=== PATIENT | female | born 1945 | race Caucasian/White ===

== ENCOUNTER 2016-11-14 15:40 | Emergency (ER) | payer OTHER, MEDICARE ==
[~2016-11-14] VITALS: Ht 165.1 cm; Wt 85.0 kg
[~2016-11-14 15:40] MED LIST: ADLT ASA LOW81 MG PO; ALBUTEIN5 % IN; ALBUTEROL S2.5 MG/.5 IN; ALBUTEROL2.5 MG/31 IN; ALBUTEROL2.5 MG/31 NEB; ALENDRONATE70 MG PO; ALLEGRA180 MG PO; ALPHA LIPOIC100 MG PO; ALPHAGAN P0.1 % IO; ALPHAGAN P0.1 % OU; ARAVA20 MG PO; ASPIRIN LOW81 M1 PO; AUGMENTIN500TAB PO; B-12 TR1000 MCG PO; BABY ASPIRIN81 MG PO; BAYER ASPIRIN325 MG PO; BD INS 0.5ML 31G5/16 SC; BD INSULIN; BD INSULIN SC; BUSPIRONE5 MG PO; BUSPIRONE7.5 MG PO; CALCIUM 600 +600 MG PO; CALCIUM D- PO; CARAFATE PO; CARAFATE1 GM/10 M1 PO; CHERATUSSIN OR; CIPROFLOXACN500 MG PO; CLINDAMYCIN HC150 MG PO; CLINDAMYCIN150 MG PO; CLINDAMYCIN300 M1 PO; COMPAZINE10 M1 PO; CRESTOR5 MG PO; DIABETA2.5 MG PO; DIFLUCAN150 MG PO; DIOVAN HCT320 MG/25 PO; DIOVAN320 MG PO; DURAGESIC25 MCG/PAT TD; ENBREL50 MG/M1 IJ; FA-8800 MCG PO; FERREX 150150 MG PO; FEXOFENADINE180 MG PO; FLEXERIL PO; FLOVENT DISK100 MCG IN; FLOVENT HFA110 MCG IN; FLUARIX QUADRIV1 IN1 IM; FLUARIX QUADRIV1 INJ IM; FLUZONE SPLT1 M1 IM; GABAPENTIN300 MG PO; GLYBURIDE2.5 MG PO; HUMALOG 751000 UNITS SC; HUMALOG KW75 MG/25 K; HUMALOG KW75 MG/25 K SC; HYDROCHLOROT25 MG PO; HYDROXYCHLOR200 M1 PO; KEFLEX500 MG PO; KLOR-CON M2020 MEQ PO; LASIX 40 MG TAB40 MG PO; LEVEMIR SC; LIPITOR80 MG PO; MAXZIDE-2537.5 MG/TA PO; MECLIZINE HCL12.5 MG PO; MECLIZINE HCL25 MG PO; MECLIZINE12.5 M1 PO; MELOXICAM15 MG PO; METFORMIN HCL1000 M1 OR; METFORMIN HCL1000 M1 PO; METFORMIN1000 MG PO; METFORMIN500 M1 PO; METHOTREXATE2.5 MG PO; MULTIVITAMIN PO; NAPROSYN500 MG PO; NOVOLIN N1000 UNITS SC; NOVOLIN R SC; NOVOLO1 SC; NOVOLOG MIX100 U/ML SC; OMEPRAZOLE20 MG OR; PHENERGAN25 MG/TAB PO; POTASSIUM CHLO10 ME4 PO; PREVNAR 13 IM; PRILOSEC20 MG PO; PROAIR HFA IN; PROTONIX40 M2 PO; TENORMIN PO; TENORMIN50 MG PO; TESSALON PER100 MG PO; TGT OMEPRAZ20 MG PO; TORADOL30 MG/VIAL IJ; TORADOL30 MG/VIAL IM; TRAMADOL HCL50 MG PO; TRAZODONE50 MG PO; TUBERSOL5 MG/0.1 M ID; TYLENOL # 31 TA1 PO; TYLENOL # 31 TAB PO; VICTOZA18 MG/3 ML SC; XELJANZ5 MG PO; ZITHROMAX500 MG PO; ZPAK PO; [UNRECOGNIZED DRUG - OTHER] PO
[2016-11-14] MEDS ORDERED: TRAMADOL HYDROC50 MG PO (17:12)
[2016-11-14] MEDS ORDERED: EC-NAPROSYN500 MG PO (17:12)
[2016-11-14] MEDS ORDERED: FLEXERIL PO (17:12)
[2016-11-14 17:29] VITALS: BP 140/63
[2016-11-14 17:48] LABS: URINE BILIRUBIN - DIPSTICK NEGATIVE (NEGATIVE); URINE BLOOD DIPSTICK TRACE-INTACT (NEGATIVE); URINE CLARITY CLEAR; URINE COLOR YELLOW; URINE GLUCOSE - DIPSTICK >=1000 mg/dL (NEGATIVE); URINE KETONE NEGATIVE (NEGATIVE); URINE LEUK ESTERASE NEGATIVE (NEGATIVE); URINE NITRITE - DIPSTICK NEGATIVE (Negative); URINE PROTEIN - DIPSTICK NEGATIVE (NEG-TRACE); URINE UROBILINOGEN - DIPSTICK 0.2 E.U./dL (0.2)
== END 2016-11-14 17:48 | disposition home or self-care (01) | DRG 552 ==
LOC: ED 15:40
PROVIDERS: Emergency Medicine
DX: S33.9XXA Sprain of unspecified parts of lumbar spine and pelvis, initial encounter (principal); V43.52XA Car driver injured in collision with other type car in traffic accident, initial encounter; Y92.414 Local residential or business street as the place of occurrence of the external cause

== ENCOUNTER 2017-02-15 16:33 | Emergency (ER) | payer MEDICARE ==
[~2017-02-15] VITALS: Ht 165.1 cm; Wt 36.4 kg
[~2017-02-15 16:33] MED LIST changes: +EC-NAPROSYN500 MG PO; +TRAMADOL HYDROC50 MG PO
[2017-02-15 17:17] LABS: HEMATOCRIT 43.1 % (37.0-47.0); HEMOGLOBIN 14.2 g/dl (12.0-16.0); IMMATURE GRANULOCYTES 0.3 % (0.0-1.0); MEAN CORPUSCULAR HGB 29.6 pG CALC (26.0-32.0); MEAN CORPUSCULAR HGB CONC 32.9 g/L CALC (32.0-36.0); NEUT# 5.17 thou/uL (2.00-7.15); RED BLOOD COUNT 4.79 mill/uL (4.20-5.60); RED CELL DISTRI WIDTH 13.9 % (11.5-15.5)
[2017-02-15 17:30] LABS: ALKALINE PHOSPHATASE 57 u/l (38-126); ANION GAP 18 (6-22 (CALC)); BILIRUBIN, TOTAL 0.6 mg/dL (0.0-1.4); BUN 28 mg/dL (8-23); BUN/CREATININE RATIO 18 (12-20 (CALC)); CALCIUM 10.8 mg/dL (8.4-10.2); CARBON DIOXIDE 26 mmol/l (22-30); CHLORIDE 106 mmol/l (95-108); CREATININE 1.6 mg/dL (0.5-1.0); GFR 32 ML/MIN (>=60 (CALC)); GFR FOR AFR.AMER. 38 ML/MIN (>=60 (CALC)); POTASSIUM 3.4 mmol/l (3.5-5.1); SGOT/AST 80 u/l (9-36); SGPT/ALT 53 u/l (11-66); SODIUM 146 mmol/l (137-146); TOTAL PROTEIN 8.2 g/dL (6.3-8.2)
[2017-02-15 17:44] LABS: ETHYL ALCOHOL 0 mg/dl (0-30); GLUCOSE 31 mg/dL (82-115); MYOGLOBIN 338 ng/mL (0 - 62)
[2017-02-15 17:49] LABS: URINE BILIRUBIN - DIPSTICK NEGATIVE (NEGATIVE); URINE BLOOD DIPSTICK SMALL (NEGATIVE); URINE CLARITY CLEAR; URINE COLOR YELLOW; URINE GLUCOSE - DIPSTICK 500 mg/dL (NEGATIVE); URINE KETONE NEGATIVE (NEGATIVE); URINE LEUK ESTERASE NEGATIVE (NEGATIVE); URINE NITRITE - DIPSTICK NEGATIVE (Negative); URINE PROTEIN - DIPSTICK TRACE mg/dL (NEG-TRACE); URINE SPECIFIC GRAVITY 1.025; URINE UROBILINOGEN - DIPSTICK 0.2 E.U./dL (0.2)
[2017-02-15 17:53] LABS: URINE SQUAMOUS EPITHELIAL CELL FEW EPI/hpf (0-FEW)
[2017-02-15 17:54] LABS: BARBITURATES NEGATIVE (NEGATIVE); COCAINE NEGATIVE (NEGATIVE); METHADONE NEGATIVE (NEGATIVE); OXCYCODONE NEGATIVE (NEGATIVE); TETRAHYDROCANNABIONOL NEGATIVE (NEGATIVE); TRICYLIC ANTIDEPRESSANTS NEGATIVE (NEGATIVE)
[2017-02-15] MEDS ORDERED: FOLIC ACID1 MG PO (21:17)
[2017-02-15] MEDS ORDERED: HUMULIN 70/30 K1 INJ SC ×2 (21:19)
[2017-02-15] MEDS ORDERED: BUSPIRONE5 MG PO (21:20)
[2017-02-15] MEDS ORDERED: ASPIRIN81 MG PO (21:21)
[2017-02-15] MEDS ORDERED: GLIPIZIDE10 MG PO (21:24)
[2017-02-16 02:59] VITALS: BP 128/53
== END 2017-02-16 02:48 ==
LOC: ED 16:33
PROVIDERS: Emergency Medicine
PROC: 0T9B70Z Drainage of Bladder with Drainage Device, Via Natural or Artificial Opening (ICD-10-PCS; principal; 2017-02-15)
DX: E11.649 Type 2 diabetes mellitus with hypoglycemia without coma (principal); Z79.4 Long term (current) use of insulin; F32.9 Major depressive disorder, single episode, unspecified; R45.851 Suicidal ideations; R41.82 Altered mental status, unspecified; Y92.531 Health care provider office as the place of occurrence of the external cause